=== PATIENT | male | born 1975 | race Caucasian/White ===

== ENCOUNTER 2017-02-28 11:59 | Emergency (ER) | payer MEDICAID ==
--- NOTE | 2017-02-28 12:02 | EDM.PDOC ---
ED HPI GENERAL MEDICAL PROBLEM - General Chief Complaint: Laceration Stated Complaint: CUT THUMB WITH CHAINSAW BLADE Time Seen by Provider: 02/28/17 12:02 Source of Information: Reports: Patient, RN, RN Notes Reviewed History Limitations: Reports: No Limitations - History of Present Illness INITIAL COMMENTS - FREE TEXT/NARRATIVE: c/o cut Rt thumb on a chainsaw. Denies any other injury. Last tetanus vaccine unknown but >10yrs per pt. Onset: Today Duration: Constant Location: Reports: Upper Extremity, Right Quality: Reports: Ache Severity: Severe Improves with: Reports: None Worsens with: Reports: None Associated Symptoms: Reports: No Other Symptoms Right Hand Pain Score (Numeric/FACES): 10 - Related Data Allergies Allergy/AdvReac Type Severity Reaction Status Date / Time codeine Allergy Nausea and Verified 09/29/13 12:27 Vomiting Home Meds: Home Meds . [No Known Home Meds] 09/29/13 [History] Past Medical History - Past Health History Medical/Surgical History: Denies Medical/Surgical History Social & Family History - Family History Family Medical History: Noncontributory - Tobacco Use Years of Tobacco use: 16 Second Hand Smoke Exposure: No - Caffeine Use Caffeine Use: Reports: Coffee, Energy Drinks, Soda - Alcohol Use Alcohol Use History: Yes Alcohol Use Frequency: Rarely - Recreational Drug Use Recreational Drug Use: Yes Recreational Drug Type: Reports: Marijuana/Hashish Recreational Drug Use Frequency: Daily - Living Situation & Occupation Living situation: Reports: with Family Review of Systems - Review of Systems Review Of Systems: ROS reveals no pertinent complaints other than HPI. ED EXAM, GENERAL - Physical Exam Exam: See Below Exam Limited By: No Limitations General Appearance: Alert, WD/WN, No Apparent Distress, Anxious Throat/Mouth: Normal Voice, No Airway Compromise Head: Atraumatic, Normocephalic Neck: Normal Inspection Respiratory/Chest: No Respiratory Distress Cardiovascular: Regular Rate, Rhythm Back Exam: Normal Inspection Extremities: Normal Range of Motion, Normal Capillary Refill, Other (3cm irregular laceration to Rt thumb to depth of bone with visible bone fragment, no active bleeding, no FB) Neurological: Alert, Oriented, CN II-XII Intact, Normal Cognition, Normal Gait, No Motor/Sensory Deficits Psychiatric: Anxious Skin Exam: Warm, Dry ED TRAUMA EXTREMITY PROCEDURES - Laceration/Wound Repair Right Finger Lac/Wound Length In cm: 3 (Rt thumb) Appearance: Muscle, Irregular, Clean Distal NVT: Neuro & Vascular Intact, Other (small bone fragments visible) Anesthetic Type: Digital Local Anesthesia - Lidocaine (Xylocaine): 1% Plain Local Anesthetic Volume: Other (10cc) Skin Prep: Chlorhexidine (Hibiciens), Saline Saline Irrigation (cc's): 1,000 Exploration/Debridement/Repair: Wound Explored, In a Bloodless Field, Explored to Base, Extensive Debridement, Moderately Undermined, No Foreign Material Found , Wound Margins Revised, Multiple Flaps Aligned Closed With: Sutures Suture Size: 3-0 # of Sutures: 17 Suture Type: Nylon, Interrupted, Running Drain Placement: No Sterile Dressing Applied: Nurse Tetanus Status Addressed: Yes Complications: No - Splinting Right Thumb Splint Site: Rt thumb Pre-Procedure NV Status: Normal Post-Procedure NV Status: Normal Splint Material: Aluminum-Foam Splint Design: Volar Applied & Form Fitted By: Nurse Provider Post-Splint Application NV Check: NV Status Normal, Good Position Complications: Yes Course - Vital Signs Last Recorded V/S: Last Vital Signs Temp 36.4 C 02/28/17 12:09 Pulse 65 02/28/17 12:09 Resp 16 02/28/17 12:09 BP 133/74 02/28/17 12:09 Pulse Ox 100 02/28/17 12:09 - Orders/Labs/Meds Orders: Active Orders 24 hr Category Date Time Status Vaccines to be Administered [RC] PER UNIT ROUTINE Care 02/28/17 12:09 Active DME for Discharge [COMM] Routine Oth 02/28/17 12:23 Ordered Meds: Medications Discontinued Medications Generic Name Dose Route Start Last Admin Trade Name Gretchen PRN Reason Stop Dose Admin Cephalexin 500 mg 02/28/17 12:09 02/28/17 12:26 Keflex PO 02/28/17 12:10 500 mg ONETIME ONE Administration Diphtheria/Tetanus/Acell Pertussis 0.5 ml 02/28/17 12:09 02/28/17 12:25 Adacel IM 02/28/17 12:10 0.5 ml .ONCE ONE Administration Lidocaine HCl 30 ml 02/28/17 12:09 02/28/17 12:16 Xylocaine-Mpf 1% INJECT 02/28/17 12:10 30 ml ONETIME ONE Administration - Radiology Interpretation Free Text/Narrative:: Xray Rt thumb: fractured romie fragments at Rt distal thumb middle & distal phalanx, see Rad. report. Departure - Departure Time of Disposition: 13:33 Disposition: Home, Self-Care 01 Condition: Good Clinical Impression: Soft tissue avulsion Laceration of right thumb Qualifiers: Encounter type: initial encounter Damage to nail status: without damage Foreign body presence: without foreign body Qualified Code(s): S61.011A - Laceration without foreign body of right thumb without damage to nail, initial encounter Open fracture of phalanx of right thumb Qualifiers: Encounter type: initial encounter Phalanx: unspecified phalanx Fracture alignment: nondisplaced Qualified Code(s): S62.501B - Fracture of unspecified phalanx of right thumb, initial encounter for open fracture - Discharge Information Instructions: Laceration Care, Adult, [id number], Avulsion Fracture of the Hand, Deep Skin Avulsion, Thumb Fracture Forms: ED Department Discharge Additional Instructions: Rx: Cephalexin 500mg Follow up in clinic in 2 to 3 days for wound recheck. Call [facility] to schedule an appointment for evaluation of your open thumb fracture. Return to ER if any signs of wound infection develop. - My Orders Last 24 Hours: My Active Orders 02/28/17 12:09 Vaccines to be Administered [RC] PER UNIT ROUTINE 02/28/17 12:23 DME for Discharge [COMM] Routine - Assessment/Plan Last 24 Hours: My Active Orders 02/28/17 12:09 Vaccines to be Administered [RC] PER UNIT ROUTINE 02/28/17 12:23 DME for Discharge [COMM] Routine
[2017-02-28] MEDS ORDERED: Diphtheria,Pertussis(Acell),Tetanus Vaccine 0.5 ML SDV IM ONE (12:09)
[2017-02-28] MEDS ORDERED: Lidocaine 1% 30 ML SDV INJECT ONE (12:09)
[2017-02-28] MEDS ORDERED: Cephalexin 500 MG Cap PO ONE (12:09)
[2017-02-28 12:13] VITALS: BP 133/74
--- NOTE | 2017-02-28 12:32 | CR ---
Clinical history: 41-year-old male chain saw injury right thumb. Interpretation: 3 views confirm soft tissue disruption with underlying comminuted fracture (fragment s peeled off the volar-ulnar aspect, distal end of the proximal phalanx and proximal half of the dis jose g phalanx) right thumb. No joint disruption and no sign of air in the joint space. No foreign bodies. No metacarpal fractures or dislocation CONCLUSION: Comminuted fracture right thumb.
[2017-02-28] MEDS ORDERED: Bacitracin Oint 1 GM U/D Packet ONE (13:34)
[2017-02-28] MEDS ORDERED: Bacitracin Oint 1 GM U/D Packet TOP ONE (13:49)
== END 2017-02-28 14:11 | disposition home or self-care (01) ==
LOC: DL.ED 11:59
DX: S62.524B Nondisplaced fracture of distal phalanx of right thumb, initial encounter for open fracture (principal); S61.011A Laceration without foreign body of right thumb without damage to nail, initial encounter; Z23 Encounter for immunization; Z88.5 Allergy status to narcotic agent; W29.3XXA Contact with powered garden and outdoor hand tools and machinery, initial encounter
CPT/HCPCS: 12002; 73140; 90715; 99283; A9270

== ENCOUNTER 2019-11-30 16:57 | Emergency (ER) | payer MEDICARE, MEDICAID ==
--- NOTE | 2019-11-30 17:18 | EDM.PDOCBH ---
ED HPI GENERAL MEDICAL PROBLEM - General Chief Complaint: Behavioral/Psych Stated Complaint: anxiety weak nausea feels like he's dying Time Seen by Provider: 11/30/19 17:17 Source of Information: Reports: Patient, Old Records, RN, RN Notes Reviewed History Limitations: Reports: Altered Mental Status - History of Present Illness INITIAL COMMENTS - FREE TEXT/NARRATIVE: Adonay comes into the ER saying he thinks he is "dying", but unable to give me any signs or symptoms. He said he took a few puffs off someone smoke on Friday and since "hasn't been able to eat his [employer] pizza or drink [employer] Dew so he has to be sick with something", denies abdominal pain, nausea, vomiting, or any pain. Wants to be tested for everything, including STD's, HIV, hepatis, heart attack. Admits to only smoking THC, denies any other drug use. Onset: Unknown/Unsure Duration: Recurring Location: Reports: Generalized Severity: Severe Improves with: Reports: None Worsens with: Reports: None Associated Symptoms: Reports: No Other Symptoms - Related Data Allergies Allergy/AdvReac Type Severity Reaction Status Date / Time codeine Allergy Nausea and Verified 09/29/13 12:27 Vomiting Home Meds: Home Meds . [No Known Home Meds] 09/29/13 [History] Past Medical History - Past Health History Medical/Surgical History: Denies Medical/Surgical History Psychiatric History: Reports: Anxiety, Developmental Delay, Emotional Problems, Panic Attack - Past Surgical History Musculoskeletal Surgical History: Reports: Other (See Below) Other Musculoskeletal Surgeries/Procedures:: left wrist surgery Social & Family History - Family History Family Medical History: Noncontributory - Caffeine Use Caffeine Use: Reports: Coffee, Energy Drinks, Soda - Living Situation & Occupation Living situation: Reports: with Family ED ROS GENERAL - Review of Systems Review Of Systems: Comprehensive ROS is negative, except as noted in HPI. ED EXAM, BEHAVIORAL HEALTH - Physical Exam Exam: See Below Exam Limited By: Altered Mental Status General Appearance: Alert, Anxious Eye Exam: Bilateral Eye: EOMI, Normal Inspection, PERRL Ears: Normal External Exam, Normal Canal, Hearing Grossly Normal, Normal TMs Nose: Normal Inspection, Normal Mucosa, No Blood Throat/Mouth: Normal Inspection, Normal Lips, Normal Oropharynx, Normal Voice, No Airway Compromise Head: Atraumatic, Normocephalic Neck: Normal Inspection, Supple, Non-Tender, Full Range of Motion Respiratory/Chest: No Respiratory Distress, Lungs Clear, Normal Breath Sounds, No Accessory Muscle Use, Chest Non-Tender Cardiovascular: Normal Peripheral Pulses, Regular Rate, Rhythm, No Edema, No Gallop, No JVD, No Murmur, No Rub GI/Abdominal: Normal Bowel Sounds, Soft, Non-Tender, No Organomegaly, No Distention, No Abnormal Bruit, No Mass (Male) Exam: Deferred Rectal (Males) Exam: Deferred Back Exam: Normal Inspection Extremities: Normal Inspection, Normal Range of Motion, Non-Tender, Normal Capillary Refill, No Pedal Edema Neurological: Alert, CN II-XII Intact, Normal Gait, No Motor/Sensory Deficits, Oriented x 3 Psychiatric: Restless, Tearful, Agitated, Flight of Ideas, Phobic, Tangential Thoughts, Pressured Speech, Paranoid Thoughts. No: Rastafarian Delusions, Suicidal Plan, Suicidal Thoughts, Auditory Hallucinations, Visual Hallucinations , Grandiose Thoughts, Threatening Behavior Skin Exam: Warm, Dry, Intact, Normal color, No rash COURSE, BEHAVIORAL HEALTH COMP - Course Vital Signs: Last Vital Signs Temp 98.1 F 11/30/19 17: Pulse 78 11/30/19 17:25 Resp 18 11/30/19 17:25 BP 123/68 11/30/19 17:25 Pulse Ox 98 11/30/19 17:25 Orders, Labs, Meds: Active Orders 24 hr Category Date Time Status CHLAMYDIA AND GONORRHEA BY TMA Routine Lab 11/30/19 17:24 Received HEPATITIS PANEL (4) [REF] Routine Lab 11/30/19 17:24 Received HIV 1,2 AB/AG COMBO SCREEN [REF] Routine Lab 11/30/19 17:24 Received RPR (SYPHILIS SERO) W/ RFLX [REF] Routine Lab 11/30/19 17:24 Received Laboratory Tests 11/30/19 11/30/19 11/30/19 Range/Units 17:24 17:24 17:24 WBC 11.3 H (5.0-10.0) 10^3/uL RBC 5.00 (4.6-6.2) 10^6/uL Hgb 15.7 (14.0-18.0) g/dL Hct 45.9 (40.0-54.0) % MCV 91.8 (80-100) fL MCH 31.4 (27.0-34.0) pg MCHC 34.2 (33.0-35.0) g/dL Plt Count 228 (150-450) 10^3/uL Neut % (Auto) 78.7 H (42.2-75.2) % Lymph % (Auto) 16.5 L (20.5-50.1) % [place] % (Auto) 4.2 (2-8) % Eos % (Auto) 0.4 L (1.0-3.0) % Baso % (Auto) 0.2 (0.0-1.0) % Sodium (136-145) mmol/L Potassium (3.5-5.1) mmol/L Chloride (98-107) mmol/L Carbon Dioxide (21-32) mmol/L Anion Gap (7-13) mEq/L BUN (7-18) mg/dL Creatinine (0.70-1.30) mg/dL Est Cr Clr Drug Dosing mL/min Estimated GFR (MDRD) BUN/Creatinine Ratio (No establ ref range) Glucose (74-99) mg/dL Calcium (8.5-10.1) mg/dL Total Bilirubin (0.2-1.0) mg/dL AST (15-37) U/L ALT (16-63) U/L Alkaline Phosphatase (46-116) U/L Troponin I (0.000-0.056) ng/mL Total Protein (6.4-8.2) g/dL Albumin (3.4-5.0) g/dL Globulin Albumin/Globulin Ratio Amylase (25-115) U/L Lipase (73-393) U/L Urine Color Yellow (YELLOW) Urine Appearance Slightly cloudy (CLEAR) Urine pH 6.0 (5.0-9.0) Ur Specific [place] 1.025 (1.005-1.030) Urine Protein Negative (NEGATIVE) Urine Glucose (UA) Negative (NEGATIVE) Urine Ketones Negative (NEGATIVE) Urine Occult Blood Trace-intact H (NEGATIVE) Urine Nitrite Negative (NEGATIVE) Urine Bilirubin Negative (NEGATIVE) Urine Urobilinogen 0.2 (0.2-1.0) mg/dL Ur Leukocyte Esterase Negative (NEGATIVE) Urine RBC 5-10 H /HPF Urine WBC 0-5 (0-5/HPF) /HPF Ur Epithelial Cells Rare (NOT SEEN) /HPF Urine Bacteria Rare (0-FEW/HPF) /HPF Urine Mucus Few H (NOT SEEN) /LPF Urine Opiates Screen Negative (NEGATIVE) Ur Oxycodone Screen Negative (NEGATIVE) Urine Methadone Screen Negative (NEGATIVE) Ur Barbiturates Screen Negative (NEGATIVE) U Tricyclic Antidepress Negative (NEGATIVE) Ur Phencyclidine Scrn Negative (NEGATIVE) Ur Amphetamine Screen Negative (NEGATIVE) U Methamphetamines Scrn Negative (NEGATIVE) Urine MDMA Screen Negative (NEGATIVE) U Benzodiazepines Scrn Negative (NEGATIVE) Urine Cocaine Screen Negative (NEGATIVE) U Marijuana (THC) Screen Positive H (NEGATIVE) Ethyl Alcohol (0) mg/dL 11/30/19 Range/Units 17:24 WBC (5.0-10.0) 10^3/uL RBC (4.6-6.2) 10^6/uL Hgb (14.0-18.0) g/dL Hct (40.0-54.0) % MCV (80-100) fL MCH (27.0-34.0) pg MCHC (33.0-35.0) g/dL Plt Count (150-450) 10^3/uL Neut % (Auto) (42.2-75.2) % Lymph % (Auto) (20.5-50.1) % [place] % (Auto) (2-8) % Eos % (Auto) (1.0-3.0) % Baso % (Auto) (0.0-1.0) % Sodium 137 (136-145) mmol/L Potassium 3.9 (3.5-5.1) mmol/L Chloride 100 (98-107) mmol/L Carbon Dioxide 26 (21-32) mmol/L Anion Gap 14.9 H (7-13) mEq/L BUN 11 (7-18) mg/dL Creatinine 1.04 (0.70-1.30) mg/dL Est Cr Clr Drug Dosing 92.53 mL/min Estimated GFR (MDRD) > 60 BUN/Creatinine Ratio 10.6 (No establ ref range) Glucose 105 H (74-99) mg/dL Calcium 9.0 (8.5-10.1) mg/dL Total Bilirubin 0.4 (0.2-1.0) mg/dL AST 21 (15-37) U/L ALT 40 (16-63) U/L Alkaline Phosphatase 71 (46-116) U/L Troponin I < 0.017 (0.000-0.056) ng/mL Total Protein 7.6 (6.4-8.2) g/dL Albumin 4.6 (3.4-5.0) g/dL Globulin 3.0 Albumin/Globulin Ratio 1.5 Amylase 48 (25-115) U/L Lipase 108 (73-393) U/L Urine Color (YELLOW) Urine Appearance (CLEAR) Urine pH (5.0-9.0) Ur Specific [place] (1.005-1.030) Urine Protein (NEGATIVE) Urine Glucose (UA) (NEGATIVE) Urine Ketones (NEGATIVE) Urine Occult Blood (NEGATIVE) Urine Nitrite (NEGATIVE) Urine Bilirubin (NEGATIVE) Urine Urobilinogen (0.2-1.0) mg/dL Ur Leukocyte Esterase (NEGATIVE) Urine RBC /HPF Urine WBC (0-5/HPF) /HPF Ur Epithelial Cells (NOT SEEN) /HPF Urine Bacteria (0-FEW/HPF) /HPF Urine Mucus (NOT SEEN) /LPF Urine Opiates Screen (NEGATIVE) Ur Oxycodone Screen (NEGATIVE) Urine Methadone Screen (NEGATIVE) Ur Barbiturates Screen (NEGATIVE) U Tricyclic Antidepress (NEGATIVE) Ur Phencyclidine Scrn (NEGATIVE) Ur Amphetamine Screen (NEGATIVE) U Methamphetamines Scrn (NEGATIVE) Urine MDMA Screen (NEGATIVE) U Benzodiazepines Scrn (NEGATIVE) Urine Cocaine Screen (NEGATIVE) U Marijuana (THC) Screen (NEGATIVE) Ethyl Alcohol < 3 (0) mg/dL Medications Discontinued Medications Generic Name Dose Route Start Last Admin Trade Name Freq PRN Reason Stop Dose Admin Lorazepam 1 mg 11/30/19 18:22 Ativan PO 11/30/19 18:23 ONETIME ONE Medical Clearance: 11/30/19 18:42 Pt is medically clear for MHP/Crisis evaluation. Discharge vs Psych Eval/Treatment:: 11/30/19 18:42 Crisis engineering clerk finds pt may be safely dc'd home to f/u in clinic. Departure - Departure Time of Disposition: 18:43 Disposition: Home, Self-Care 01 Condition: Good Clinical Impression: Anxiety about health - Discharge Information *PRESCRIPTION DRUG MONITORING PROGRAM REVIEWED*: Not Applicable *COPY OF PRESCRIPTION DRUG MONITORING REPORT IN PATIENT MU: Not Applicable Instructions: Living With Anxiety Forms: ED Department Discharge Additional Instructions: Follow up with your clinic doctor in 3 to 5 days. Sepsis Event Note - Focused Exam Vital Signs: Vital Signs Temp Pulse Resp BP Pulse Ox 11/30/19 17:25 98.1 F 78 18 123/68 98 Date Exam was Performed: 11/30/19 Time Exam was Performed: 18:23 - My Orders Last 24 Hours: My Active Orders 11/30/19 17:24 CHLAMYDIA AND GONORRHEA BY TMA Routine HEPATITIS PANEL (4) [REF] Routine HIV 1,2 AB/AG COMBO SCREEN [REF] Routine RPR (SYPHILIS SERO) W/ RFLX [REF] Routine - Assessment/Plan Last 24 Hours: My Active Orders 11/30/19 17:24 CHLAMYDIA AND GONORRHEA BY TMA Routine HEPATITIS PANEL (4) [REF] Routine HIV 1,2 AB/AG COMBO SCREEN [REF] Routine RPR (SYPHILIS SERO) W/ RFLX [REF] Routine
[2019-11-30 17:43] VITALS: BP 123/68; PULSE 78
[2019-11-30 17:53] LABS: ANION GAP 14.9 mEq/L (7-13); CHLORIDE,CL 100 mmol/L (98-107); SODIUM,NA 137 mmol/L (136-145)
[2019-11-30] MEDS ORDERED: LORazepam 1 MG Tab PO ONE (18:22)
[2019-12-02 11:47] LABS: C.TRACHOMATIS BY TMA Negative (Negative); N.GONORRHOEAE BY TMA Negative (Negative)
== END 2019-11-30 18:52 | disposition home or self-care (01) ==
LOC: DL.ED 16:57
DX: F41.9 Anxiety disorder, unspecified (principal); Z88.5 Allergy status to narcotic agent; K64.9 Unspecified hemorrhoids; R68.89 Other general symptoms and signs
CPT/HCPCS: 36415; 80053; 80074; 80305; 80307; 81001; 82150; 83690; 84484; 85025; 86592; 86593; 87389; 87491; 87591; 99203; 99283; A9270